=== PATIENT | male | born 1965 | race Asian ===

== ENCOUNTER 2017-01-23 15:02 | Emergency (ER) | payer BC ==
[~2017-01-23] VITALS: Ht 175.3 cm; Wt 68.0 kg
[2017-01-23] MEDS ORDERED: MECLIZINE HCL 12.5 MG TABLET. PO ONE (15:30)
[2017-01-23 15:34] LABS: BASO % 0 % (0-3); EOS % 3 % (0-3); HEMATOCRIT 45.3 % (39.0-53.0); HEMOGLOBIN 15.8 g/dL (13.0-17.5); LYMPH # 2.9 x10^3/uL (1.0-4.8); LYMPH % 37 % (24-48); MEAN CORPUSCULAR HEMOGLOBIN 30 pg (25-35); MEAN CORPUSCULAR HGB CONC 35 g/dL (31-37); MEAN CORPUSCULAR VOLUME 87 fL (79-100); MONO % 9 % (0-9); NEUT % 50 % (31-73); PLATELET COUNT 124 x10^3/uL (140-400); RED BLOOD COUNT 5.18 x10^6/uL (4.30-5.70); RED CELL DISTRIBUTION WIDTH 13.4 % (11.5-14.5); WHITE BLOOD COUNT 7.7 x10^3/uL (4.0-11.0)
[2017-01-23] MEDS ORDERED: MECL25TA3 PO ×2 (15:44→16:10)
--- NOTE | 2017-01-23 15:45 | PHYS DOC ---
Past Medical History Past Medical History: Hypertension Past Surgical History: No Surgical History Alcohol Use: None Drug Use: None Adult General Chief Complaint Chief Complaint: DIZZY/LIGHT HEADED HPI HPI 51-year-old male presenting to the emergency department today with dizziness that he describes as vertigo. This all started yesterday. He has had this dizziness before which resolved spontaneously. He does report hypertension for which she takes hydrochlorothiazide. Sometimes he feels shortness of breath with exertion. His primary complaint is dizziness. Onset 24 hours. Location generalized. Duration intermittent. Alleviated with rest. Exacerbated by movement of the head. Review of systems is negative for chest pain abdominal pain nausea vomiting fevers or chills. He denies cough. All other review of systems is negative unless otherwise noted in history of present illness. Review of Systems Review of Systems SEE ABOVE. Current Medications Current Medications Current Medications Medications (Trade) Dose Ordered Sig/Manny Start Time Stop Time Status Last Admin Dose Admin Meclizine HCl (Antivert) 25 mg 1X ONCE 01/23/17 15:30 01/23/17 15:31 DC 01/23/17 15:34 25 MG Allergies Allergies Allergies Coded Allergies Type Severity Reaction Last Updated Verified No Known Drug Allergies 01/23/17 No Physical Exam Physical Exam Constitutional: Well developed, well nourished, no acute distress, non-toxic appearance. HENT: Normocephalic, atraumatic, bilateral external ears normal, oropharynx moist, no oral exudates, nose normal. [] Eyes: PERRLA, EOMI, conjunctiva normal, no discharge. Neck: Normal range of motion, no tenderness, supple, no stridor. [] Cardiovascular:Heart rate regular rhythm, no murmur Lungs & Thorax: Clear to auscultation bilaterally without any wheezing or crackles. Patient is saturating 96% Abdomen: Bowel sounds normal, soft, no tenderness, no masses, no pulsatile masses. [] Skin: Warm, dry, no erythema, no rash. Back: No tenderness, no CVA tenderness. [] Extremities: No tenderness, no cyanosis, no clubbing, ROM intact, no edema. [] Neurologic: Mental status: Awake oriented and alert x3 Cranial nerves: Extraocular movements intact, eyebrows sonido bilaterally smile symmetric, uvula elevation, shoulder shrug intact, tongue protrusion normal DTRs: 2+ Sensation: equal and normal in all extremities Strength: 5/5 in upper and lower extremities bilaterally Head impulse test showed overlooking of the nose, horizontal nystagmus w/ lateral gaze , no skew present. Psychologic: Affect normal, judgement normal, mood normal. [] Current Patient Data Vital Signs Vital Signs Date Time Temp Pulse Resp B/P (MAP) Pulse Ox O2 Delivery O2 Flow Rate FiO2 01/23/17 15:15 97.7 61 18 163/98 (119) 96 Room Air 97.7 Lab Values Laboratory Tests Test 01/23/17 15:18 White Blood Count 7.7 x10^3/uL (4.0-11.0) Red Blood Count 5.18 x10^6/uL (4.30-5.70) Hemoglobin 15.8 g/dL (13.0-17.5) Hematocrit 45.3 % (39.0-53.0) Mean Corpuscular Volume 87 fL (79-100) Mean Corpuscular Hemoglobin 30 pg (25-35) Mean Corpuscular Hemoglobin Concent 35 g/dL (31-37) Red Cell Distribution Width 13.4 % (11.5-14.5) Platelet Count 124 x10^3/uL (140-400) L Neutrophils (%) (Auto) 50 % (31-73) Lymphocytes (%) (Auto) 37 % (24-48) Monocytes (%) (Auto) 9 % (0-9) Eosinophils (%) (Auto) 3 % (0-3) Basophils (%) (Auto) 0 % (0-3) Neutrophils # (Auto) 3.9 x10^3uL (1.8-7.7) Lymphocytes # (Auto) 2.9 x10^3/uL (1.0-4.8) Monocytes # (Auto) 0.7 x10^3/uL (0.0-1.1) Eosinophils # (Auto) 0.2 x10^3/uL (0.0-0.7) Basophils # (Auto) 0.0 x10^3/uL (0.0-0.2) Sodium Level 139 mmol/L (136-145) Potassium Level 2.8 mmol/L (3.5-5.1) *L Chloride Level 102 mmol/L (98-107) Carbon Dioxide Level 31 mmol/L (21-32) Anion Gap 6 (6-14) Blood Urea Nitrogen 11 mg/dL (8-26) Creatinine 1.0 mg/dL (0.7-1.3) Estimated GFR (Cockcroft-Gault) 78.2 Glucose Level 148 mg/dL (70-99) H Calcium Level 9.1 mg/dL (8.5-10.1) Troponin I Quantitative < 0.017 ng/mL (0.000-0.055) Laboratory Tests 01/23/17 15:18 Laboratory Tests 01/23/17 15:18 EKG EKG [] EKG reviewed by myself shows sinus rhythm with a regular rate. [place] is normal. Intervals are within normal limits. ST segments show mild repolarization in V3. Not consistent with ischemia. Radiology/Procedures Radiology/Procedures [] Course & Med Decision Making Course & Med Decision Making Pertinent Labs and Imaging studies reviewed. (See chart for details) [] 51-year-old gentleman presenting to the emergency department with peripheral vertigo. Vital signs unremarkable other than mild hypertension which is chronic. Neurologic examination suggestive of peripheral vertigo. Patient was given meclizine in the emergency department. blood work was obtained. Potassium was low however there were not EKG Changes consistent with low potassium. No previous available for comparison at this time. I had a risk-benefit discussion with the patient and his family about hypokalemia and collectively we decided to initiate oral treatment and have him follow up with his doctor in the next day or 2. On reexamination his symptoms had improved significant. The patient was then discharged home in stable condition to follow up with their primary care physician over the next 2-3 days. They were to return if their symptoms worsened or if they were concerned for any reason. [id number] discharge instructions and return precautions were given. Patient's questions were answered to their satisfaction. Patient is comfortable plan. Dragon Disclaimer Dragon Disclaimer This electronic medical record was generated, in whole or in part, using a voice recognition dictation system. Departure Departure Impression: Primary Impression: Peripheral vertigo Disposition: HOME, SELF-CARE Condition: STABLE Referrals: UNKNOWN PCP NAME (PCP) MAR CARDONA MD Patient Instructions: Vertigo Additional Instructions: Thank you for allowing us to participate in your care today. I recommend you see a physical therapist for vertigo treatment. Take the medication as prescribed as needed for vertigo. Followup with your primary care physician in 3 days if your symptoms do not improve. If you do not have a primary care provider you can ask for a list of our primary care providers. Return to the emergency department you have any new or concerning findings. This should be evaluated by the primary care physician and any necessary consulting services for continued management within a few days after discharge. Return to emergency room if you have any new or concerning symptoms including but not limited to fever, chills, nausea, vomiting, intractable pain, any new rashes, chest pain, shortness of air, uncontrolled bleeding, difficulty breathing, and/or vision loss. You may have been prescribed medication that can change in your level of thinking and ability to operate machinery. These medications include hydrocodone and Ativan. Also, Benadryl has been known to do this as well. Be sure to check with your pharmacist and ask if the medications you've prescribed can affect your level of consciousness. I recommend not operating heavy machinery or driving while on medication such as these. Scripts Potassium Chloride (POTASSIUM CHLORIDE) 10 Meq Capsule.er 40 MEQ PO DAILY for 10 Days, #10 TAB.SR Prov: RIMA CHEUNG MD 01/23/17 Meclizine Hcl (MECLIZINE HCL) 25 Mg Tablet 25 MG PO PRN Q24HRS Y for DIZZINESS, #10 TAB Prov: RIMA CHEUNG MD 01/23/17 Problem Qualifiers Primary Impression: Peripheral vertigo Laterality: unspecified laterality Qualified Codes: H81.399 - Other peripheral vertigo, unspecified ear RIMA CHEUNG MD January 23, 2017 15:45
[2017-01-23 15:49] LABS: CALCIUM 9.1 mg/dL (8.5-10.1); GFR 78.2
[2017-01-23 15:52] LABS: POTASSIUM 2.8 mmol/L (3.5-5.1)
[2017-01-23] MEDS ORDERED: POTASSIUM CHLO10 MEQ PO (16:10)
[2017-01-23] MEDS ORDERED: POTASSIUM CHLORIDE 20 MEQ TABLET.ER. PO ONE (16:30)
[2017-01-23 16:41] VITALS: BP 146/91
--- NOTE | 2017-01-24 09:41 | EKG ---
[facility] [address] [place] [id number] Test Date: 2017-01-23 Test Time: 15:15:06 Pat Name: HANSEL SIMPSON Department: Room: Gender: M S[employer] Inker: : 1965 Requested By: RIMA CHEUNG Order Number: [id number] Reading MD: Ga Dahl Measurements Intervals [place] Rate: 61 P: 16 NM: 178 QRS: 11 QRSD: 90 T: 52 QT: 450 QTc: 455 Interpretive Statements SINUS RHYTHM NON-SPECIFIC ST/T CHANGES Electronically Signed On 01-28-2017 9:24:33 CDT by Ga Dahl
== END 2017-01-23 17:09 | disposition home or self-care (01) ==
LOC: ER 15:02
DX: H81.399 Other peripheral vertigo, unspecified ear (principal); I10 Essential (primary) hypertension; R06.02 Shortness of breath; Z79.899 Other long term (current) drug therapy
CPT/HCPCS: 36415; 80048; 84484; 85027; 93005; 99285; J8597; 99284